=== PATIENT | male | born 1975 | race African-American/Black ===

== ENCOUNTER 2016-11-15 04:25 | Inpatient (IN) | payer OTHER ==
--- NOTE | ~2016-11-15 | HP ---
History And Physical [address] [facility] [place]. [address] NAME: VANI TORREZ : 79 STATUS : ADM IN [facility]#: [id number] AGE: 41 ADM/REG DATE : 11/15/16 MR#: [id number] REPORT SERV DATE: 11/15/16 DICTATED BY: NEAL HILL IV DATE: 11/15/16 REPORT STATUS : Draft TRANSCRIBED BY: MODL DATE: 11/15/16 DATE OF ADMISSION: 11/15/2016 CRITICAL CARE ADMISSION NOTE REASON FOR ADMISSION: Acute hypoxemic and hypercapnic respiratory failure with multilobar pneumonia and exacerbation of his obstructive lung disease. HISTORY OF PRESENT ILLNESS: History was obtained from the records and from the patient. He is a very poor historian. He is a 41-year-old male with a history of obstructive sleep apnea, noncompliant, severe obstructive lung disease on a pulmonary function study from 2014, reflux disease, hypertension, elevated cholesterol, and drug use, who presents with three days of increased shortness of breath and 36 hours of fevers with some multilobar pneumonia. The patient states he was in normal state of health until last Tuesday when he had noticed the insidious onset of increased shortness of breath and a dry and nonproductive cough. He only noted onset of fevers 36 hours ago. There were no exposures to any ill individuals. He has no recent travel exposure or animal exposures. He has a ProAir inhaler which he has not used for a period of time. He noted increased chest congestion with shortness of breath and denies any wheezing. Because of progressive symptoms, he sought evaluation in the emergency room where he was hypoxemic, initially hypertensive, and tachycardic. Blood gas was found to be hypercapnic for which he was placed on BiPAP therapy with improvement of symptoms, but he remains tachypneic. The patient was originally felt to possibly have volume overload for which he was given a diuretic; however subsequently, his procalcitonin level was high as his white blood cell count with a radiographic picture more consistent with pneumonia. The patient denies seizure, loss of consciousness, or possible aspiration. He has had HIV test twice in the past, most recently in 2015 when he had an STD evaluation. The patient denies any retrosternal or pleuritic chest pain. He denies hemoptysis. PULMONARY HISTORY: Remarkable for no history of childhood asthma, known adult obstructive lung disease or previous pneumonia. He does have pulmonary function studies in 2015, which documents nocturnal hypoxemia as well as, by report, severe obstructive lung disease with an FEV1 of 1.29 L, though no percentage provided and severe reduction in the diffusion capacity of 34%. He smokes marijuana one to two joints a day and three cigars a day. He works at [employer] as a cook. He reportedly did receive the seasonal influenza vaccine. PAST MEDICAL HISTORY: 1. Obstructive sleep apnea, noncompliant with CPAP. 2. Severe obstructive lung disease. 3. Reflux disease. 4. Hypertension. 5. Elevated cholesterol. 6. Drug use. SURGERIES: He had hydrocele repair. He had adenoidectomy and tonsillectomy, and he had an I History And Physical [address] [place]. [address] NAME: VANI TORREZ : 79 STATUS : ADM IN [facility]#: [id number] AGE: 41 ADM/REG DATE : 11/15/16 MR#: [id number] REPORT SERV DATE: 11/15/16 DICTATED BY: NEAL HILL IV DATE: 11/15/16 REPORT STATUS : Draft TRANSCRIBED BY: ANTONIO DATE: 11/15/16 and D of an abscess. ALLERGIES: THERE ARE NO KNOWN DRUG ALLERGIES. HOME MEDICATIONS: The patient provides the ProAir, metformin, and he has other medications which were provided to the ER staff, though that list is now missing as are the drugs. SOCIAL HISTORY: Remarkable for the tobacco use as above. The patient drinks one to two beers every other day. He smokes marijuana as noted. He denied cocaine use until I confronted him with the previous evaluation which now he admits he uses intermittently. He is single and has two children. FAMILY HISTORY: Remarkable for diabetes in maternal grandmother and both parents with hypertension. REVIEW OF SYSTEMS: 14-systems reviewed. Pertinent positives as noted above. PHYSICAL EXAMINATION: GENERAL: This is an obese, middle-aged -[place] male, tachypneic, though in no other distress. VITAL SIGNS: Blood pressure is 128/74, temperature is 98.2, pulse is 112, saturations are currently 99% on the BiPAP, and respiratory rate is 36. HEENT: The patient is normocephalic, atraumatic. Extraocular movements are intact. Pupils react to light. Sclerae and conjunctivae are normal. On quick look, he has a Mallampati 3 to 4 airway with narrowing of the posterior pharyngeal space. NECK: Without any palpable lymphadenopathy or thyromegaly. CHEST: The patient has symmetrically decreased breath sounds. There are bronchial breath sounds throughout the left hemithorax with crackles. There are expiratory wheezes with some scattered rhonchi. CARDIOVASCULAR: Jugular venous pulsations are difficult to elicit. He has 2+ carotid upstrokes. He has a tachycardic S1, S2 with no clear murmur or S3. Peripheral pulses are intact. ABDOMEN: Obese with striae. There are hypoactive bowel sounds. There is no palpable hepatosplenomegaly or masses. EXTREMITIES: Demonstrate no cyanosis, clubbing, edema, or palpable cords. NEUROLOGIC: The patient follows commands. Strength is 5/5 and sensation intact to light touch. LABORATORY DATA: Chest x-ray and chest CT scan demonstrated a left greater than right infiltrate with a dense consolidation in the mid lung field with tree-in-bud infiltrate in the right lung as well. There is a gastric thickening and what is called a right adrenal mass though Hounsfield units need to be measured to see if this is an adenoma. Initial blood gas was pH 7.36, pCO2 of 52, pO2 of 37. Repeat blood gas on the BiPAP; pH 7.33, pCO2 of 66, pO2 of 97. CBC: Hemoglobin is 14.5, hematocrit 44.8, platelet count was 210,000, and white blood cell count of 15.6. Lactate was 1.7. BNP is 246. Chemistry: History And Physical [address] [place]. [address] NAME: VANI TORREZ : 79 STATUS : ADM IN [facility]#: [id number] AGE: 41 ADM/REG DATE : 11/15/16 MR#: [id number] REPORT SERV DATE: 11/15/16 DICTATED BY: NEAL HILL IV DATE: 11/15/16 REPORT STATUS : Draft TRANSCRIBED BY: MODL DATE: 11/15/16 Sodium is 133, potassium 3.5, chloride 95, bicarbonate 30, BUN 6, creatinine 0.9. Glucose of 174, albumin is 2.8, alkaline phosphatase is 97, ALT is 54, AST is 58, troponin is less than 0.02. Procalcitonin level is 2.76. Drug screen is positive for cocaine. ASSESSMENT AND PLAN: 1. Respiratory. Steroids will be given both for the obstructive lung disease as well as the multilobar pneumonia, 40 mg q.12 h. He will be given a trial of BiPAP at 20/8, rate of 10, which will be humidified. If he deteriorates, he will undergo intubation, patient is aware of this. He will be given Pulmicort 1 mg twice a day and Brovana unit dose twice a day. DuoNeb will be given q.4 h. with albuterol q.2 h. as needed. Chest x-ray will be obtained daily. Repeat blood gas will be obtained for worsening status in the morning. 2. Infectious disease. The patient will have Human immunodeficiency virus repeated. Quantitative immunoglobulins will be obtained with his recurrent infections. Urine antigen will be sent for Legionella as well as for Pneumococcus. Blood cultures have been sent as well as a sputum culture. The patient will be given Zosyn with possibility of aspiration as well. Vancomycin and Levaquin to cover atypicals; this can be adjusted depending on the culture results. 3. Endocrinologic. Insulin drip will be ordered with the IV steroids and blood sugars are already elevated. Hemoglobin A1c will be obtained. Thyroid functions will be obtained. 4. Cardiovascular. We will hold his antihypertensives, and we need to find out what they are. With his critical status, echocardiogram will be obtained with cocaine use. I would not attempt diuresis at this time. 5. Neurologic. Habitrol patch for tobacco dependency. A drug screen is positive for the cocaine as noted. Thiamine will be given with my concern about the exact amount of his alcohol use 200 mg IV daily, and we will give Precedex if needed for evidence of withdrawal or for need for tolerance of the BiPAP. 6. Gastrointestinal. Protonix will be given for gastrointestinal prophylaxis. Review CT scan with Radiology here to evaluate the adrenal lesion as well as the bowel thickening. N.p.o. for now. 7. Hematologic. Lovenox for deep vein thrombosis prophylaxis. 8. Renal. We will replace the patient's potassium, KVO IV with normal saline. Mag and phos will be obtained. Electrolyte replacement protocol has been ordered. The patient will be admitted to the ICU. Critical care time is 0625 hours to 0725 hours for 60 minutes. AMMON/ANTONIO Neal Hill IV, M.D. / [id number] History And Physical [address] [address] NAME: VANI TORREZ : 79 STATUS : ADM IN [facility]#: [id number] AGE: 41 ADM/REG DATE : 11/15/16 MR#: [id number] REPORT SERV DATE: 11/15/16 DICTATED BY: NEAL HILL IV DATE: 11/15/16 REPORT STATUS : Draft TRANSCRIBED BY: ANTONIO DATE: 11/15/16 CC: Neal Hill IV, M.D.
--- NOTE | ~2016-11-15 | DS ---
Discharge Summary [address] [place]. [address] NAME: VANI TORREZ : 79 STATUS : DIS IN PAT#: [id number] AGE: 41 ADM/REG DATE : 11/15/16 MR#: [id number] REPORT SERV DATE: 11/23/16 DICTATED BY: NIKKI KIMBLE DATE: 11/22/16 REPORT STATUS : Draft TRANSCRIBED BY: ANTONIO DATE: 11/22/16 ADMISSION DATE: 11/15/2016 DISCHARGE DATE: 11/22/2016 DIAGNOSES: 1. Hypoxic respiratory failure. 2. Pneumonia with hemoptysis with Haemophilus influenzae. 3. Chronic obstructive pulmonary disease exacerbation. 4. Type 2 diabetes. 5. Polysubstance abuse, educated. 6. Tobacco abuse, educated. 7. Medical noncompliance, improved. FOLLOWUP: The patient should follow up with Dr. Bansal, fiscal clerk for COPD in three to four weeks and follow up with the primary care physician in one to two weeks. The patient has been educated on tobacco abuse and polysubstance abuse cessation. DISCHARGE MEDICATIONS: Amlodipine 10 mg p.o. daily, Augmentin 875 mg p.o. b.i.d. for one day, lisinopril 20 mg p.o. daily, multivitamin p.o. daily, nystatin topical ointment at the diaper area q.i.d. for seven days, Nebivolol 20 mg p.o. daily, Dexilant 60 mg p.o. daily per home dose, Zocor 40 mg p.o. at bedtime, Florastor one cap p.o. b.i.d., metformin 1000 mg p.o. b.i.d., Farxiga 5 mg p.o. q.a.m., Systane ophthalmic drops, albuterol MDI two puffs inhaled every four hours p.r.n., and Combivent Respimat one inhalation q.i.d. CONSULTANTS: 1. Diabetic education and Pulmonary, Dr. Bansal. 2. Attending Critical Care with Dr. Trever Hill and hospitalist, Dr. Kimble. HOSPITAL COURSE: Please see H and P dictated by Dr. Trever Hill. This is a 41 years old male with a past medical history of COPD with a history of tobacco abuse, presented with shortness of breath and dyspnea on exertion as well as subjective fever and chills, increased chest congestion and admitted to the ICU for hypoxic hypercapnic respiratory failure with multilobar pneumonia. The patient was initiated on IV antibiotics as well as bronchodilators and required BiPAP. Also, the patient was placed on steroid for his COPD exacerbation. Also, required insulin drip on admission, for uncontrolled diabetes. The patient's UDS was positive for cocaine, and the patient was educated on polysubstance abuse cessation as well as tobacco abuse cessation. His influenza swab was nonreactive. The patient did have some mild scant hemoptysis secondary to his pneumonia. His sputum culture eventually grew out Haemophilus influenzae. He was changed over from IV Zosyn into Augmentin. The patient was transferred to a regular floor and at that time transferred over to Hospitalist Service with a pulmonary consultation with Dr. Bansal. Dr. Bansal signed off and stated the patient should follow up as an outpatient in clinic for COPD. Multiple times, the patient did have medical noncompliance during this hospital course and at one point became very angry that he was on an ADA diet. The patient was educated on multiple attempts concerning compliance and reasoning for management. He did receive diabetic education during this hospital course. The patient was to be discharged with home oxygen on Discharge [address] [address] NAME: VANI TORREZ : 79 STATUS : DIS IN PAT#: [id number] AGE: 41 ADM/REG DATE : 11/15/16 MR#: [id number] REPORT SERV DATE: 11/23/16 DICTATED BY: NIKKI KIMBLE DATE: 11/22/16 REPORT STATUS : Draft TRANSCRIBED BY: ANTONIO DATE: 11/22/16 11/19/2016; however, the patient could not afford home oxygen and also Case Management could not find a facility for [place] of oxygen. Therefore, the patient's hospital course was prolonged. The patient also was educated on compliance of medicine with spirometer usage. Over the weekend, the patient's O2 requirement improved dramatically after the patient became compliant with his incentive spirometer. He was taken off his steroid as well. Continue with bronchodilators as well as his antibiotics. The patient was noted to be ambulating well on room air for over 48 hours. The patient's O2 sats greater than 95% on room air with ambulation. Therefore, the patient did not require home O2 at the time of discharge. Also was educated on importance of medical compliance and following up with Pulmonary as well as his primary care physician as an outpatient. This discharge required greater than 30 minutes. Also please note, by the time of discharge, the patient was much more compliant medically and understood the importance of his compliance with his medical therapy. ERICKA/MODL Nikki Kimble M.D. / [id number] CC: Maris Pineda FNP Jennifer Ford
--- NOTE | ~2016-11-15 | CN ---
Consultation Report [facility] [address] [facility] [place]. [address] NAME: VANI BARROW : 79 STATUS : ADM IN PAT#: [id number] AGE: 41 ADM/REG DATE : 11/15/16 MR#: [id number] REPORT SERV DATE: 11/18/16 DICTATED BY: ELAINE BANSAL DATE: 11/17/16 REPORT STATUS : Draft TRANSCRIBED BY: MODL DATE: 11/17/16 PULMONARY CONSULT NOTE DATE OF CONSULTATION: CHIEF COMPLAINT: Fevers and chills with coughing and wheezing. REASON FOR CONSULTATION: Acute hypoxic respiratory failure. HISTORY OF PRESENT ILLNESS: Mr. Barrow is a 41-year-old gentleman with a past medical history noted of obstructive sleep apnea and reflux disease. He presents with around five days of underlying wheezing and shortness of breath. Initially, he had no shortness of breath, but then developed worsening shortness of breath around 24 hours prior to coming in. He began having sweating with hot flashes. He became more weak and had decided that he needed to come in as he could not go to [facility]. The patient presented on the 11/15/2016, 48 hours ago, with what looked to be acute and hypercapnic respiratory failure to the intensive care unit. He was given steroids and antibiotics along with nebulizers. Otherwise, the patient has no further complaints. The patient is transferred from the intensive care unit on to the floor. PAST MEDICAL HISTORY: Obstructive sleep apnea, hypertension, prediabetes, obesity, history of a left inguinal boil, hyperlipidemia, hypertension, severe obstructive lung disease with an FEV1 of 1.29 L. MEDICATIONS: Home medications currently are amlodipine, Farxiga, Dexilant, metformin, Bystolic, simvastatin. ALLERGIES: NO KNOWN DRUG ALLERGIES. SOCIAL HISTORY: The patient continues to smoke, mostly cigars and marijuana. He smokes no significant amount of cigarettes as he states right now he is only smoking cigars, but in the past, has smoked cigarettes. He drinks alcohol several times a week and has a history of cocaine use. FAMILY HISTORY: The patient states that only family history is diabetes and hypertension. REVIEW OF SYSTEMS: All pertinent review of systems reviewed and is otherwise negative. PHYSICAL EXAMINATION: VITAL SIGNS: The patient is currently afebrile, heart rate in the 70s and 80s, respiratory rate 18 to 20, oxygen saturation currently 97% on 3.5 L, blood pressure in the 140s systolic. GENERAL: The patient is alert and oriented, no acute distress, sitting up in bed. Consultation Report [address] [place]. [address] NAME: VANI BARROW : 79 STATUS : ADM IN [facility]#: [id number] AGE: 41 ADM/REG DATE : 11/15/16 MR#: [id number] REPORT SERV DATE: 11/18/16 DICTATED BY: ELAINE BANSAL DATE: 11/17/16 REPORT STATUS : Draft TRANSCRIBED BY: ANTONIO DATE: 11/17/16 Pulmonary: The patient has mild wheezing bilaterally and some crackles, but otherwise, good air movement. CARDIAC: Regular rate, no murmurs. ABDOMEN: Soft, nontender, nondistended. NEUROLOGIC: The patient is able to move all extremities with no difficulty. He has good strength. EXTREMITIES: No lower extremity edema. LABORATORY EXAMINATION: Mild leukocytosis with neutrophilia. Procalcitonin on admission was 2.76. Good kidney function. Elevated glucose. LDH is 176. BNP is 246. HIV test is nonreactive. Immunoglobulins are borderline low with IgG and IgM. The patient has underlying chronic hypercapnia on his arterial blood gas. Legionella is negative. Cocaine is positive on the urine drug screen. IMAGING DATA: Consistent with a left-sided multifocal pneumonia with clear air bronchograms. Microbiology: Cultures show moderate growth of Haemophilus influenza by O2. ASSESSMENT AND PLAN: Mr. Barrow is a 41-year-old gentleman with a past medical history noted above, who presents with the above problems with the new onset hypoxia in the setting of multifocal pneumonia. 1. Acute hypoxic respiratory failure: The patient is currently stable on nasal cannula of 3.5 liters. Recommend continuing this and titrating as needed. The patient most likely will be on antibiotics for some time due to the density of the infiltrate, but furthermore, the patient will most likely be on oxygen for the foreseeable next several weeks until this pneumonia is cleared. 2. Haemophilus influenza pneumonia: Recommend at this moment in time switching to amoxicillin, clavulanic acid, and checking procalcitonins to evaluate for response. Second sputum culture is of poor quality, but that is also another evaluation mechanism to see whether the white blood cell count per light powered field decreases with current antibiotic strategy. 3. Obstructive sleep apnea: Continue BiPAP. 4. Severe chronic obstructive pulmonary disease: It is quite interesting for somebody his age to have this severe chronic obstructive pulmonary disease. We would recommend that the patient followup in Pulmonary clinic in two months with a repeat chest x-ray and pulmonary function testing to further evaluate this. We will arrange. 5. Mild immunoglobulin deficiency: Unclear what the significance of this is, I would recommend having this followed up in several months to make sure this is back to a normal level after this infection. Thank you very much for this consultation, please call us if you have any questions with the above-named recommendations. At this moment in time, we will sign off. Please call us if you have any other further questions. Consultation Report [address] [place]. [address] NAME: VANI BARROW : 79 STATUS : ADM IN PAT#: [id number] AGE: 41 ADM/REG DATE : 11/15/16 MR#: [id number] REPORT SERV DATE: 11/18/16 DICTATED BY: ELAINE BANSAL DATE: 11/17/16 REPORT STATUS : Draft TRANSCRIBED BY: MODL DATE: 11/17/16 HFQ/MODL Elaine Bansal MD / [id number] CC: Gabriella Roman M.D.
[~2016-11-15 04:25] MED LIST: AMOXIL500C PO; APRES25 PO; BYSTOLIC10 MG PO; BYSTOLIC5 MG PO; DOVONCR60 TOP; GLUCOPHAGE1000 MG PO; GLUCOTRO10 PO; KAPIDEX60 MG PO; NORV10 PO; P10 PO; PCET PO; PROAIR HFA INH; SINGULAIR1 PO; TRICOR145 PO; ZESTORETIC PO
[2016-11-15 04:43] LABS: BE (BASE EXCESS) 2.1 MEQ/L (0 +/- 2.5); CARBOXYHEMOGLOBIN 6.2 % (0-3); DEVICE NC; HCO3 (ACTUAL BICARBONATE) 28.7 MEQ/L (23-27); HEMOBLOGIN CONTENT 15.4 G/DL (14-18); INSTRUMENT SERIAL # 8087; METHEMOGLOBIN 0.2 % (0-3); O2 CONTENT 13.9 VOL% (18-24); PCO2 (CO2 TENSION) 52 MMHG (35-45); PO2 (O2 TENSION) 37 MMHG (79-93); SAMPLE Arterial; pH 7.36 (7.37-7.43)
[2016-11-15 04:55] LABS: BASOPHILS 0.2 %; BASOPHILS ABSOLUTE 0.03 10/3/uL (0.0-0.16); EOSINOPHILS 0.4 %; EOSINOPHILS ABSOLUTE 0.06 10/3/uL (0.0-0.53); ER CBC TAT 0 Hrs 18 Mins; HEMATOCRIT 44.8 % (40.0-51.0); HEMOGLOBIN 14.5 g/dL (13.6-17.8); IMMATURE GRANULOCYTES 1.2 %; IMMATURE GRANULOCYTES ABSOLUTE 0.18 10/3/uL (0.0-0.11); LYMPHOCYTES ABSOLUTE 1.25 10/3/uL (0.67-4.30); MANUAL DIFF NO %; MEAN CORPUS HGB CONC 32.4 g/dL (32.0-36.0); MEAN CORPUSCULAR HEMOGLOB 32.1 pg (26.0-34.0); MEAN CORPUSCULAR VOLUME 99.1 fL (80-100); MONOCYTES 10.1 %; MONOCYTES ABSOLUTE 1.57 10/3/uL (0.21-1.20); NEUTROPHILS 80.1 %; NEUTROPHILS ABSOLUTE 12.47 10/3/uL (2.02-8.40); PLATELET COUNT 210 10/3/uL (150-400); RBC DISTRIBUTION WIDTH 14.6 % (12.0-16.0); RED CELL COUNT 4.52 10/6/uL (4.7-6.1); WHITE BLOOD CELLS 15.6 10/3/uL (4.5-10.5)
[2016-11-15 05:02] LABS: ALKALINE PHOSPHATASE 97 U/L (45-117); CHLORIDE, SERUM 95 MMOL/L (96-112); CO2 (CARBON DIOXIDE) 30 MMOL/L (24-34); GFR AFRICAN AMERICAN 124 ML/MIN (>=60); GFR NON AFRICAN AMERICAN 107 ML/MIN (>=60); POTASSIUM, SERUM 3.5 MMOL/L (3.5-5.3); SGOT(AST) 58 U/L (5-40); SGPT(ALT) 54 U/L (5-65); TOTAL BILIRUBIN 0.6 MG/DL (0-1.2); TOTAL PROTEIN 7.2 G/DL (6.0-8.5); TROPONIN I <0.02 NG/ML (<0.05)
[2016-11-15 05:04] LABS: A/G RATIO 0.6 (0.7-1.9); ALBUMIN 2.8 G/DL (3.5-5.0); BUN (BLOOD UREA NITROGEN) 6 MG/DL (6-23); CALCIUM, SERUM 8.6 MG/DL (8.5-10.4); GLOBULIN 4.4 G/DL (2.5-4.1); GLUCOSE, SERUM 174 MG/DL (60-99); SODIUM, SERUM 133 MMOL/L (135-148)
[2016-11-15 06:08] LABS: PROCALCITONIN 2.76 ng/mL (<0.5)
[2016-11-15 06:30] LABS: BE (BASE EXCESS) 5.3 MEQ/L (0 +/- 2.5); BIPAP 20/8 cm.H2O; CARBOXYHEMOGLOBIN 4.5 % (0-3); HCO3 (ACTUAL BICARBONATE) 33.7 MEQ/L (23-27); INSTRUMENT SERIAL # 8087; METHEMOGLOBIN 0.2 % (0-3); O2 CONTENT 19.6 VOL% (18-24); PCO2 (CO2 TENSION) 66 MMHG (35-45); PO2 (O2 TENSION) 97 MMHG (79-93); SAMPLE Arterial; pH 7.33 (7.37-7.43)
[2016-11-15 06:58] LABS: BENZODIAZEPINES (NOT ORD) NEG (NEG); COCAINE (NOT ORDERED) POS (NEG); PHENCYCLIDINE(PCP) NEG (NEG)
[2016-11-15 06:59] LABS: AMPHETAMINES (NOT ORD) NEG (NEG); BARBITURATES (NOT ORDERED NEG (NEG); CANNABINOIDS (THC) NEG (NEG); OPIATES NEG (NEG); TRICYCLICS NEG (NEG)
[2016-11-15] MEDS ORDERED: NORV10 PO (07:36)
[2016-11-15] MEDS ORDERED: GLUCOPHAGE1000 MG PO (07:37)
[2016-11-15] MEDS ORDERED: FARXIGA5 PO (07:38)
[2016-11-15] MEDS ORDERED: KAPIDEX60 MG PO (07:38)
[2016-11-15] MEDS ORDERED: BYSTOLIC20 MG PO (07:39)
[2016-11-15] MEDS ORDERED: ZOCOR40 PO (07:42)
[2016-11-15] MEDS ORDERED: SYSTANE OPH (07:43)
[2016-11-15 11:58] LABS: FREE T4 0.73 NG/DL (0.76-1.46); PHOSPHORUS, SERUM 2.9 MG/DL (2.5-4.5)
[2016-11-15 11:59] LABS: ULTRASENSITIVE TSH 0.228 MCIU/ML (0.358-3.740)
[2016-11-15 12:09] LABS: ASCORBIC ACID (UR NOT ORDER) NEG (NEG); BILIRUBIN, URINE NEGATIVE (NEG); KETONE, URINE NEGATIVE (NEG); LEUKOCYTE ESTERASE(NOT OR NEG (NEG); WBC (NOT ORDERED) (RFLEX) 1 (0-5)
[2016-11-16 03:24] LABS: BASOPHILS 0.1 %; BASOPHILS ABSOLUTE 0.02 10/3/uL (0.0-0.16); EOSINOPHILS 0.1 %; EOSINOPHILS ABSOLUTE 0.01 10/3/uL (0.0-0.53); HEMATOCRIT 42.6 % (40.0-51.0); HEMOGLOBIN 13.6 g/dL (13.6-17.8); IMMATURE GRANULOCYTES 1.4 %; LYMPHOCYTES 3.7 %; LYMPHOCYTES ABSOLUTE 0.54 10/3/uL (0.67-4.30); MEAN CORPUS HGB CONC 31.9 g/dL (32.0-36.0); MEAN CORPUSCULAR HEMOGLOB 32.2 pg (26.0-34.0); MEAN CORPUSCULAR VOLUME 100.7 fL (80-100); MEAN PLATELET VOLUME 9.8 fL (9.2-13.0); MONOCYTES ABSOLUTE 0.87 10/3/uL (0.21-1.20); NEUTROPHILS 88.7 %; NEUTROPHILS ABSOLUTE 12.93 10/3/uL (2.02-8.40); PLATELET COUNT 227 10/3/uL (150-400); RBC DISTRIBUTION WIDTH 14.7 % (12.0-16.0); RED CELL COUNT 4.23 10/6/uL (4.7-6.1); WHITE BLOOD CELLS 14.6 10/3/uL (4.5-10.5)
[2016-11-16 03:25] LABS: MANUAL DIFF NO %
[2016-11-16 03:43] LABS: BE (BASE EXCESS) 5.9 MEQ/L (0 +/- 2.5); CARBOXYHEMOGLOBIN 0.6 % (0-3); DEVICE NC; HCO3 (ACTUAL BICARBONATE) 32.9 MEQ/L (23-27); HEMOBLOGIN CONTENT 14.5 G/DL (14-18); INSTRUMENT SERIAL # 35151; METHEMOGLOBIN 0.5 % (0-3); O2 CONTENT 18.9 VOL% (18-24); PCO2 (CO2 TENSION) 58 MMHG (35-45); PO2 (O2 TENSION) 71 MMHG (79-93); SAMPLE Arterial; pH 7.37 (7.37-7.43)
[2016-11-16 03:44] LABS: A/G RATIO 0.5 (0.7-1.9); ALBUMIN 2.3 G/DL (3.5-5.0); ALKALINE PHOSPHATASE 90 U/L (45-117); CALCIUM, SERUM 8.9 MG/DL (8.5-10.4); CO2 (CARBON DIOXIDE) 30 MMOL/L (24-34); CREATININE 0.87 MG/DL (0.70-1.30); GFR AFRICAN AMERICAN 126 ML/MIN (>=60); GFR NON AFRICAN AMERICAN 109 ML/MIN (>=60); GLOBULIN 4.8 G/DL (2.5-4.1); POTASSIUM, SERUM 4.1 MMOL/L (3.5-5.3); SGOT(AST) 19 U/L (5-40); SGPT(ALT) 40 U/L (5-65); TOTAL BILIRUBIN 0.4 MG/DL (0-1.2); TOTAL PROTEIN 7.1 G/DL (6.0-8.5); TROPONIN I <0.02 NG/ML (<0.05)
[2016-11-16 03:47] LABS: BUN (BLOOD UREA NITROGEN) 15 MG/DL (6-23); CHLORIDE, SERUM 105 MMOL/L (96-112); GLUCOSE, SERUM 211 MG/DL (60-99); PHOSPHORUS, SERUM 1.7 MG/DL (2.5-4.5); SODIUM, SERUM 143 MMOL/L (135-148)
[2016-11-17 06:51] LABS: HEMATOCRIT 42.4 % (40.0-51.0); HEMOGLOBIN 13.4 g/dL (13.6-17.8); MEAN CORPUS HGB CONC 31.6 g/dL (32.0-36.0); MEAN CORPUSCULAR HEMOGLOB 31.9 pg (26.0-34.0); MEAN PLATELET VOLUME 9.7 fL (9.2-13.0); NUCLEATED RED BLOOD CELLS 0.3 /100WBC (0-0); PLATELET COUNT 231 10/3/uL (150-400); RBC DISTRIBUTION WIDTH 14.7 % (12.0-16.0); WHITE BLOOD CELLS 15.6 10/3/uL (4.5-10.5)
[2016-11-17 06:52] LABS: MANUAL DIFF YES %
[2016-11-17 06:59] LABS: BUN (BLOOD UREA NITROGEN) 16 MG/DL (6-23); CALCIUM, SERUM 9.4 MG/DL (8.5-10.4); CHLORIDE, SERUM 106 MMOL/L (96-112); CO2 (CARBON DIOXIDE) 28 MMOL/L (24-34); CREATININE 0.97 MG/DL (0.70-1.30); GFR AFRICAN AMERICAN 114 ML/MIN (>=60); GFR NON AFRICAN AMERICAN 98 ML/MIN (>=60); GLUCOSE, SERUM 222 MG/DL (60-99); POTASSIUM, SERUM 3.8 MMOL/L (3.5-5.3); SODIUM, SERUM 142 MMOL/L (135-148)
[2016-11-17 07:13] LABS: BAND NEUTROPHILS 12 %; IMMATURE GRANS ABSOLUTE (CALC) 0.31 10/3/uL (0.0-0.11); LYMPHOCYTES 4 %; LYMPHOCYTES ABSOLUTE (CALC) 0.62 10/3/uL (0.67-4.30); METAMYELOCYTES 2 %; MONOCYTES 8 %; MONOCYTES ABSOLUTE (CALC) 1.25 10/3/uL (0.21-1.20); NEUTROPHILS ABSOLUTE (CALC) 13.42 10/3/uL (2.02-8.40); SEGMENTED NEUTROPHIL (0) 74 %; TOTAL NUCLEATED CELLS 100
[2016-11-17 07:14] LABS: HYPOCHROMIA 1+ (3-10/OIF) (0-2/OIF); MACROCYTES 1+ (5-10/OIF) (0-5/OIF); PLATELET ESTIMATE ADQ (ADEQUATE); POLYCHROMASIA 1+ (2-5/OIF) (0-1/OIF)
[2016-11-18 06:35] LABS: BASOPHILS 0.3 %; BASOPHILS ABSOLUTE 0.04 10/3/uL (0.0-0.16); EOSINOPHILS 0.3 %; EOSINOPHILS ABSOLUTE 0.04 10/3/uL (0.0-0.53); HEMATOCRIT 42.1 % (40.0-51.0); HEMOGLOBIN 13.4 g/dL (13.6-17.8); IMMATURE GRANULOCYTES 3.1 %; IMMATURE GRANULOCYTES ABSOLUTE 0.39 10/3/uL (0.0-0.11); LYMPHOCYTES 9.5 %; LYMPHOCYTES ABSOLUTE 1.21 10/3/uL (0.67-4.30); MEAN CORPUS HGB CONC 31.8 g/dL (32.0-36.0); MEAN CORPUSCULAR HEMOGLOB 31.9 pg (26.0-34.0); MEAN CORPUSCULAR VOLUME 100.2 fL (80-100); MEAN PLATELET VOLUME 9.3 fL (9.2-13.0); MONOCYTES ABSOLUTE 1.66 10/3/uL (0.21-1.20); NEUTROPHILS 73.8 %; NEUTROPHILS ABSOLUTE 9.41 10/3/uL (2.02-8.40); PLATELET COUNT 250 10/3/uL (150-400); RBC DISTRIBUTION WIDTH 14.8 % (12.0-16.0); WHITE BLOOD CELLS 12.8 10/3/uL (4.5-10.5)
[2016-11-18 06:37] LABS: MANUAL DIFF NO %
[2016-11-18 06:45] LABS: BUN (BLOOD UREA NITROGEN) 16 MG/DL (6-23); CALCIUM, SERUM 9.7 MG/DL (8.5-10.4); CHLORIDE, SERUM 107 MMOL/L (96-112); CO2 (CARBON DIOXIDE) 27 MMOL/L (24-34); CREATININE 0.97 MG/DL (0.70-1.30); GFR AFRICAN AMERICAN 114 ML/MIN (>=60); GFR NON AFRICAN AMERICAN 98 ML/MIN (>=60); GLUCOSE, SERUM 249 MG/DL (60-99); POTASSIUM, SERUM 4.1 MMOL/L (3.5-5.3); SODIUM, SERUM 144 MMOL/L (135-148)
[2016-11-18 08:13] LABS: PROCALCITONIN 0.41 ng/mL (<0.5)
[2016-11-21 17:30] LABS: CALCIUM, SERUM 9.2 MG/DL (8.5-10.4); CHLORIDE, SERUM 107 MMOL/L (96-112); CREATININE 0.89 MG/DL (0.70-1.30); GFR AFRICAN AMERICAN 125 ML/MIN (>=60); GFR NON AFRICAN AMERICAN 108 ML/MIN (>=60); POTASSIUM, SERUM 3.8 MMOL/L (3.5-5.3); SODIUM, SERUM 145 MMOL/L (135-148)
[2016-11-21 17:31] LABS: BUN (BLOOD UREA NITROGEN) 11 MG/DL (6-23); CO2 (CARBON DIOXIDE) 35 MMOL/L (24-34); GLUCOSE, SERUM 114 MG/DL (60-99)
[2016-11-22] MEDS ORDERED: AUG875 PO (11:19)
[2016-11-22] MEDS ORDERED: PROAIR HFA INH (11:20)
[2016-11-22] MEDS ORDERED: FLORASTOR250 MG PO (11:20)
[2016-11-22] MEDS ORDERED: PRIN20 PO (11:20)
[2016-11-22] MEDS ORDERED: COMBIVENT RESPIM4 GM INH (11:21)
[2016-11-22] MEDS ORDERED: SYMBICORT 160/41 INH INH (11:23)
[2016-11-22] MEDS ORDERED: MULTIVITAMI1 PO (11:24)
== END 2016-11-22 16:00 | disposition home or self-care (01) | DRG 189 ==
LOC: ER 04:25 → CCU 07:38 → 5SO 11-16 15:00
PROVIDERS: Internal Medicine; Internal Medicine Critical Care Medicine; Nurse Practitioner Acute Care
PROC: 02HV33Z Insertion of Infusion Device into Superior Vena Cava, Percutaneous Approach (ICD-10-PCS; principal; 2016-11-15)
PROC: 4A02X4A Measurement of Cardiac Electrical Activity, Guidance, External Approach (ICD-10-PCS; 2016-11-15)
DX: J96.01 Acute respiratory failure with hypoxia (principal); J11.00 Influenza due to unidentified influenza virus with unspecified type of pneumonia; J18.9 Pneumonia, unspecified organism; J44.0 Chronic obstructive pulmonary disease with (acute) lower respiratory infection; J44.1 Chronic obstructive pulmonary disease with (acute) exacerbation; I10 Essential (primary) hypertension; B96.3 Hemophilus influenzae [H. influenzae] as the cause of diseases classified elsewhere; J96.02 Acute respiratory failure with hypercapnia; G47.33 Obstructive sleep apnea (adult) (pediatric); K21.9 Gastro-esophageal reflux disease without esophagitis; F17.210 Nicotine dependence, cigarettes, uncomplicated; Z91.19 Patient's noncompliance with other medical treatment and regimen; Z79.84 Long term (current) use of oral hypoglycemic drugs; Z79.899 Other long term (current) drug therapy; Z91.14 Patient's other noncompliance with medication regimen; E11.65 Type 2 diabetes mellitus with hyperglycemia
CPT/HCPCS: 36569; 36600; 71010; 71275; 80048; 80053; 80305; 81001; 82784; 82805; 82962; 83036; 83520; 83605; 83615; 83735; 83880; 84100; 84132; 84145; 84439; 84443; 84484; 85025; 87040; 87070; 87205; 87389; 87449; 87641; 93005; 94640; 94660; 96365; 96375; 99291; A9270-GY; C1751; C8929; C9113; J0360; J1940; J1956; J2405; J2543; J2920; J3370; J3411; J3475; Q9957; Q9967